=== PATIENT | female | born 1995 | race Caucasian/White ===

== ENCOUNTER → 2023-03-30 12:59 | Outpatient (CLI) | payer OTHER, SELFPAY ==
--- NOTE | 2023-04-05 10:14 | P.PFT.S_ITS ---
Pulmonary Function Test Referral & Results Date Patient Seen: 03/30/23 Results: The?spirometry?demonstrates?an?FVC?of?3.80?L?which?is?97%?of?predicted. The?FEV1?was?measured?at?3.14?L?which?is?94%?of?predicted. The?FEV1/FVC?ratio?was?83?which?is?97%?of?predicted. Following?the?admini stration?of?bronchodilator?there?was?an?18%?improvement?in?FEV1?and?a?63%?improv ement?in?FEF?25-75%. Interpretation: This?study?whic h?was?done?as?forced?spirometry?alone?with?and?without?bronchodilator,?demonstra jong?probably?normal?forced?spirometry?but?there?is?evidence?of?near?significant? improvement?in?both?FEV1?and?FEF?25-75%? post?bronchodilator?which?would?suggest?significant?benefit?after?bronchodilator ?administration,?which?would?suggest?the?possibility?of?some?degree?of?obstructi ve?lung?disease?is?present Clinical?correlation?suggested
--- NOTE | 2023-04-05 10:14 | PM.PFT.1 ---
Pulmonary Function Test Referral & Results Date Patient Seen: 03/30/23 Results: The?spirometry?demonstrates?an?FVC?of?3.80?L?which?is?97%?of?predicted. The?FEV1?was?measured?at?3.14?L?which?is?94%?of?predicted. The?FEV1/FVC?ratio?was?83?which?is?97%?of?predicted. Following?the?administration?of?bronchodilator?there?was?an?18%?improvement?in?FEV1?and?a?63%?improvement?in?FEF?25-75%. Interpretation: This?study?which?was?done?as?forced?spirometry?alone?with?and?without?bronchodilator,?demonstrates?probably?normal?forced?spirometry?but?there?is?evidence?of?near?significant?improvement?in?both?FEV1?and?FEF?25-75%?post?bronchodilator?which?would?sug gest?significant?benefit?after?bronchodilator?administration,?which?would?suggest?the?possibility?of?some?degree?of?obstructive?lung?disease?is?present Clinical?correlation?suggested
== END ==
PROVIDERS: Referring Provider Chiropractor; Visit Provider Chiropractor
DX: R06.00 Dyspnea, unspecified (principal); J98.8 Other specified respiratory disorders
CPT/HCPCS: 94060